=== PATIENT | male | born 1995 | race African-American/Black ===

== ENCOUNTER 2018-11-13 11:47 | Emergency (ER) | payer BC, OTHER ==
[~2018-11-13] VITALS: Ht 170.2 cm; Wt 54.4 kg
[2018-11-13 11:56] VITALS: BP 130/74
[2018-11-13] MEDS ORDERED: VENTOLIN HFA18 GM INH (11:57)
--- NOTE | 2018-11-13 12:00 | NUR ---
ED Nurse Note: Patient walked into ED from home c/o coughing for 1.5 weeks. patient reports hx of asthma. patient is alert awake x4 ambulatory steady gait, breathing unlabored and even, speaking in full sentences.
[2018-11-13] MEDS ORDERED: GUAIFENESIN DM118 M1 ORAL (12:41)
[2018-11-13] MEDS ORDERED: PREDNISONE20 MG ORAL (12:42)
[2018-11-13 12:45] VITALS: BP 130/74
--- NOTE | 2018-11-13 12:45 | NUR ---
ELOPEMENT: patient eloped without getting discharge papers. RN unable to take out id band due to patient elopement. notified Dr. Rios.
--- NOTE | 2018-11-13 12:48 | Emergency Room Report ---
History of Present Illness General Chief Complaint: Flu Like Symptoms Source: Patient Present Illness HPI Patient is 23-year-old male who presents after increased cough. Patient reports having some prior history of asthma. He denies being a smoker. He reports having cough intermittently productive of yellow sputum. He denies any severe shortness of breath. He reports having worsening cough at night. He states he is currently taking steroids as well as breathing treatments with albuterol without any improvement. He denies any severe shortness of breath. He denies any leg pain or swelling. He denies fever. Allergies: Coded Allergies: No Known Allergies (Unverified , 11/13/18) Patient History Past Medical History: see triage record, asthma Reviewed Nursing Documentation: PMH: Agreed; PSxH: Agreed Nursing Documentation-PMH Past Medical History: No History, Except For Hx Asthma: Yes Review of Systems All Other Systems: negative except mentioned in HPI Physical Exam Vital Signs Date Time Temp Pulse Resp B/P (MAP) Pulse Ox O2 Delivery O2 Flow Rate FiO2 11/13/18 11:56 98.4 18 130/74 100 Room Air 11/13/18 11:56 60 General Appearance: well appearing, no apparent distress, alert, GCS 15 Head: normocephalic, atraumatic ENT: hearing grossly normal, normal voice Neck: full range of motion, supple Respiratory: lungs clear, no respiratory distress, speaking full sentences Cardiovascular #1: normal inspection Gastrointestinal: normal inspection Musculoskeletal: normal inspection, no calf tenderness Neurologic: normal inspection, alert, oriented x3, responsive, 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 Differential diagnosis included but was not limited to bronchitis, pneumonia, pulmonary embolism, pericarditis, asthma, foreign body. Patient presents with what appears to be a viral respiratory infection. He does not show any evidence of acute bacterial infection at this time. He is not febrile. His oxygen saturation is normal. He has intermittent cough. This is nonproductive. Patient was given prescriptions for medications for symptomatic treatment which included prednisone and guaifenesin with dextromethorphan. Patient was somewhat insistent on obtaining cough syrup. I do not feel that narcotic cough syrup is indicated at this time and I believe the patient will be fine with medications that I prescribed. Patient appears to be stable for discharge and has good air movement. Last Vital Signs Date Time Temp Pulse Resp B/P (MAP) Pulse Ox O2 Delivery O2 Flow Rate FiO2 11/13/18 12:15 60 18 Room Air 11/13/18 11:56 98.4 130/74 (92) 100 Status: improved Disposition: HOME, SELF-CARE Condition: Stable Scripts Prednisone* (PREDNISONE*) 20 Mg Tablet 40 MG ORAL DAILY, #10 TAB Prov: Jose Armando Rios MD 11/13/18 Guaifenesin/Dextromethorphan (Guaifenesin Dm Syrup) 5 Ml Syrup 1 TSP ORAL Q8H, #118 ML 0 Refills Prov: Jose Armando Rios MD 11/13/18 Patient Instructions: Cough, Adult Jose Armando Rios MD Nov 13, 2018 12:48
== END 2018-11-13 12:45 | disposition left against medical advice (07) ==
LOC: EMR 12:13
DX: J45.909 Unspecified asthma, uncomplicated (principal); Z79.51 Long term (current) use of inhaled steroids
CPT/HCPCS: 99282